=== PATIENT | female | born 1960 | race Two or more races ===

== ENCOUNTER 2016-12-03 07:30 | Emergency (ER) | payer OTHER ==
[2016-12-03] MEDS ORDERED: ACETAMINOPHEN 500 MG TABLET ONE (08:26)
[2016-12-03 08:31] LABS: ABSOLUTE NEUTROPHIL COUNT 8.9 K/mm3 (1.8-7.7); BASO # 0.1 K/mm3 (0.0-0.2); BASO % 0.4 % (0.2-1.0); EOS # 0.1 (0.0-0.5); HEMATOCRIT 39.2 % (37.0-47.0); HEMOGLOBIN 12.8 gm/l (12.0-16.0); IMM NEUT% 0.2 % (0-1); LYMPH # 2.7 (1.0-4.8); LYMPH % 21.7 % (15-45); MEAN CELL VOLUME 87.9 fl (81.0-99.0); MEAN CORPUSCULAR HEMOGLOBIN 28.7 pg (27.0-31.0); MEAN CORPUSCULAR HGB CONC 32.7 g/dl (33.0-37.0); MEAN PLATELET VOLUME 11.5 fl (7.4-10.4); MONO # 0.6 (0.0-0.8); MONO % 5.1 % (4-12); NEUT % 71.6 % (43-75); PLATELET COUNT 401 K/mm3 (130-400); RED CELL DISTRIBUTION WIDTH 12.5 % (11.5-14.5)
--- NOTE | 2016-12-03 08:36 | RAD ---
History: Right-sided chest pain. Comparison: None. Technique: 2 views Findings: The soft tissue and bony structures are appropriate. The heart size is within expected. There is airspace density seen within the left pulmonary base which may reflect atelectasis or early infiltrate. No effusion is seen. The hilar and mediastinal structures are intact. Impression: 1. Left basilar atelectasis or early infiltrate.
[2016-12-03 08:43] LABS: ALB/GLOB RATIO 1.3 (>1.0); ALBUMIN 4.2 gm/dL (3.5-5.7); CALCIUM 9.9 mg/dL (8.6-10.3)
== END 2016-12-03 09:10 | disposition home or self-care (01) ==
LOC: ED 07:30
DX: R07.81 Pleurodynia (principal); I10 Essential (primary) hypertension; E11.9 Type 2 diabetes mellitus without complications; Z79.84 Long term (current) use of oral hypoglycemic drugs
CPT/HCPCS: 83690; 85025; 80053; 84484; 71020; 99283 ×2; 82962; 93005; A9270

== ENCOUNTER 2017-02-12 19:18 | Emergency (ER) | payer OTHER ==
[2017-02-12] MEDS ORDERED: LACTATED RINGERS 1,000 ML ONE ×2 (19:53→20:40)
[2017-02-12] MEDS ORDERED: ONDANSETRON 4 MG/2ML 2 ML VIAL ONE (19:54)
[2017-02-12 19:55] LABS: URINE BILIRUBIN NEGATIVE (NEGATIVE); URINE BLOOD 2+ (NEGATIVE); URINE GLUCOSE (UA) 3+ (NEGATIVE); URINE LEUKOCYTE ESTERASE TRACE (NEGATIVE); URINE NITRITE POSITIVE (NEGATIVE); URINE PROTEIN 2+ (NEGATIVE); URINE UROBILINOGEN NORMAL (0-1 mg/dl)
[2017-02-12 20:00] LABS: URINE APPEARANCE SL CLOUDY; URINE COLOR DARK YELLOW
[2017-02-12 20:04] LABS: URINE BACTERIA 2+
[2017-02-12 20:17] LABS: ABSOLUTE NEUTROPHIL COUNT 3.2 K/mm3 (1.8-7.7); BASO % 0.4 % (0.2-1.0); HEMATOCRIT 39.1 % (37.0-47.0); IMM NEUT% 0.4 % (0-1); LYMPH # 1.6 (1.0-4.8); MEAN CELL VOLUME 87.1 fl (81.0-99.0); MEAN CORPUSCULAR HGB CONC 33.2 g/dl (33.0-37.0); MEAN PLATELET VOLUME 11.3 fl (7.4-10.4); MONO # 0.4 (0.0-0.8); MONO % 7.7 % (4-12); NEUT % 61.5 % (43-75); PLATELET COUNT 300 K/mm3 (130-400); RED CELL DISTRIBUTION WIDTH 12.4 % (11.5-14.5)
[2017-02-12] MEDS ORDERED: MAALOX/LIDO2%VISC/SIMETHICONE 40 ML BOT ONE (20:17)
[2017-02-12 20:27] LABS: ALB/GLOB RATIO 1.1 (>1.0); CALCIUM 9.5 mg/dL (8.6-10.3)
[2017-02-12] MEDS ORDERED: INSULIN REGULAR HUMAN (DOSE) 100 UNITS/1 ML ONE (20:38)
[2017-02-12] MEDS ORDERED: CEFTRIAXONE 1 GRAM DUPLEX 50 ML IV ONE (20:38)
== END 2017-02-12 22:11 | disposition home or self-care (01) ==
LOC: ED 19:18
DX: N39.0 Urinary tract infection, site not specified (principal); K29.70 Gastritis, unspecified, without bleeding; E11.65 Type 2 diabetes mellitus with hyperglycemia; Z79.84 Long term (current) use of oral hypoglycemic drugs; I10 Essential (primary) hypertension; E78.5 Hyperlipidemia, unspecified; Z79.899 Other long term (current) drug therapy; Z79.1 Long term (current) use of non-steroidal anti-inflammatories (NSAID); Z79.82 Long term (current) use of aspirin
CPT/HCPCS: 83605; 83690; 85025; 87086; 80053; 81001; 96375; 99284 ×2; 96361; 96365; 82962; A9270; J2405; J7120 ×2; J1815; J0696